=== PATIENT | female | born 1940 | race Caucasian/White ===

== ENCOUNTER 2019-09-04 19:52 | Observation (INO) | payer MEDICARE ==
[~2019-09-04] VITALS: Ht 165.1 cm; Wt 93.0 kg
--- OUTSIDE RECORDS SUMMARY | 2019-09-04 19:56 | XMS REPORT ---
Author Author [facility] Address Unknown Phone Unavailable Care Team Providers Care Family Preservation Caseworker Name Role Phone Unavailable Unavailable Payers Payer Name Policy Type Policy Number Effective Date Expiration Date Problems This patient has no known problems. Allergies, Adverse Reactions, Alerts Allergy Name Allergy Type Status Severity Reaction(s) Onset Date Inactive Date Treating Clinician Comments cefuroxime axetil DA Active U 2018-11-14 00:00:00 codeine DA Active U 2018-11-14 00:00:00 cefaclor DA Active U 2018-11-14 00:00:00 cefuroxime axetil DA Active U 2013-08-10 00:00:00 codeine DA Active U 2013-08-10 00:00:00 cefaclor DA Active U 2013-08-10 00:00:00 Medications This patient has no known medications. Results Test Description Test Time Test Comments Text Results Atomic Results Result Comments BASIC METABOLIC PANEL 2018-11-14 13:32:00 SODIUM (test code=NA) 143 mmol/L 136-145 POTASSIUM (test code=K) 4.8 mmol/L 3.5-5.1 CHLORIDE (test code=CL) 108.0 mmol/L 98-107 CARBON DIOXIDE (test code=CO2) 27.0 mmol/L 21-32 ANION GAP (test code=GAP) 12.8 10-20 GLUCOSE (test code=GLU) 99 mg/dL 74-106 BLOOD UREA NITROGEN (test code=BUN) 10 mg/dL 7-18 GLOMERULAR FILTRATION RATE (test code=GFR) > 60 mL/min >=60 Estimated GFR by using Modified MDRD formula.Chronic kidney disease is defined as either kidney damageor GFR <60 mL/min/1.73 m2 for >3 months. CREATININE (test code=CREAT) 0.70 mg/dL 0.55-1.02 Note change in reference range due to change in reagent. BUN/CREATININE RATIO (test code=BUN/CREA) 13.6 10-20 CALCIUM (test code=CA) 9.0 mg/dL 8.5-10.1 HEPATIC FUNCTION [id number] 13:32:00* Test Item Value Reference Range Comments TOTAL PROTEIN (test code=PROT) 7.6 gram/dL 6.4-8.2 ALBUMIN (test code=ALB) 3.3 g/dL 3.4-5.0 GLOBULIN (test code=GLOB) 4.3 gram/dL 2.7-4.2 ALBUMIN/GLOBULIN RATIO (test code=A/G) 0.8 0.75-1.50 BILIRUBIN TOTAL (test code=BILT) 0.30 mg/dL 0.0-1.0 BILIRUBIN DIRECT (test code=BILD) 0.09 mg/dL 0.0-0.20 SGOT/AST (test code=AST) 20 IUnit/L 15-37 SGPT/ALT (test code=ALT) 24 IUnit/L 12-78 ALKALINE PHOSPHATASE TOTAL (test code=ALKP) 87 IUnit/L 45-117 Note change in reference range due to change in reagent. [id number] 13:32:00* Test Item Value Reference Range Comments LIPASE (test code=LIP) 127 U/L 73.0-393.0 [id number] 13:32:00* Test Item Value Reference Range Comments TROPONIN-I (test code=TROPI) <0.015 ng/mL 0-0.045 PROTHROMBIN [id number] 13:16:00* Test Item Value Reference Range Comments PROTHROMBIN TIME PATIENT (test code=PTP) 11.0 seconds 9.0-14.0 INTERNATIONAL NORMAL RATIO (test code=INR) 0.9 0.8-1.2 The therapeutic range for oral anticoagulant therapy formost indications is an international normalized ratio (INR)of between 2.0 and 3.0. The recommended therapeutic INRrange for various clinical situations is listed below: Clinical Situation INR range Pulmonary e mbolism treatment (2.0-3.0)Venous thrombosis treatmentVenous thrombosis prophylaxis (high risk surgery)Prevention of systemic embolism from: Acute myocardial infarction Valvular heart disease Atrial fibrillation Mechanical prosthetic heart valves (2.5-3.5) IS PATIENT ON ANTICOAGULANTS? NCBC W/O [id number] 13:10:00* Test Item Value Reference Range Comments WHITE BLOOD CELL (test code=WBC) 9.0 K/mm3 4.5-12.5 RED BLOOD CELL (test code=RBC) 4.60 mill/mm3 3.7-5.2 HEMOGLOBIN (test code=HGB) 8.3 gram/dL 11.5-15.5 HEMATOCRIT (test code=HCT) 31.5 % 36.0-46.0 MEAN CELL VOLUME (test code=MCV) 68.5 fL 80-98 MEAN CELL HGB (test code=MCH) 18.0 picogram 27.0-33.0 MEAN CELL HGB CONCETRATION (test code=MCHC) 26.3 gram/dL 33.0-36.0 RED CELL DISTRIBUTION WIDTH (test code=RDW) 22.1 % 11.6-16.2 PLATELET COUNT (test code=PLT) 396 K/mm3 150-450 MEAN PLATELET VOLUME (test code=MPV) 9.6 fL 6.7-11.0
[2019-09-04 20:46] LABS: BASOPHILS # (AUTO) 0.1 (0.0-0.1); BASOPHILS % 0.7 % (0.0-1.0); EOSINOPHILS # (AUTO) 0.1 (0.0-0.4); HEMATOCRIT 44.2 % (34.2-44.1); HEMOGLOBIN 14.7 g/dL (12.0-16.0); LYMPHOCYTES # (AUTO) 5.5 (1.0-3.2); LYMPHOCYTES % 41.1 % (18.0-39.1); MEAN CORPUSCULAR HEMOGLOBIN 29.3 pg (28-32); MEAN CORPUSCULAR HGB CONC 33.3 g/dL (31-35); MEAN CORPUSCULAR VOLUME 88.2 fL (81-99); MONOCYTES # (AUTO) 1.2 (0.2-0.8); MONOCYTES % 8.6 % (4.4-11.3); NEUTROPHILS # (AUTO) 6.5 (2.1-6.9); NEUTROPHILS % 48.3 % (38.7-80.0); PLATELET COUNT 377 x10e3/uL (140-360); RED BLOOD COUNT 5.01 x10e6/uL (3.6-5.1); RED CELL DISTRIBUTION WIDTH 16.1 % (11.7-14.4)
[2019-09-04 20:54] LABS: INR 0.85; PROTHROMBIN TIME 12.1 seconds (11.9-14.5)
[2019-09-04 20:55] LABS: PARTIAL THROMBOPLASTIN TIME 25.1 seconds (23.8-35.5)
[2019-09-04 21:04] LABS: ALANINE AMINOTRANSFERASE 22 IU/L (0-55); ALBUMIN/GLOBULIN RATIO 1.1 (0.8-2.0); ALKALINE PHOSPHATASE 79 IU/L (40-150); ANION GAP 20.5 mmol/L (8-16); BLOOD UREA NITROGEN 9 mg/dL (7-26); BUN/CREATININE RATIO 11 (6-25); CALCIUM 10.5 mg/dL (8.4-10.2); CARBON DIOXIDE 20 mmol/L (22-29); CHLORIDE 100 mmol/L (98-107); CREATINE KINASE 83 IU/L (29-168); EST GLOMERULAR FILTRATION RATE > 60 ML/MIN (60-); GLUCOSE 131 mg/dL (74-118); POTASSIUM 3.5 mmol/L (3.5-5.1); SODIUM 137 mmol/L (136-145)
--- NOTE | 2019-09-04 21:10 | Diagnostic Imaging Report ---
EXAMINATION: CHEST SINGLE (PORTABLE) INDICATION: ^ERMD ORDER ^[id number] ^2044 ^Y COMPARISON: None FINDINGS: AP view TUBES and LINES: None. LUNGS: Lungs are well inflated. Mild central vascular congestion. There is no evidence of pneumonia or pulmonary edema. PLEURA: No pleural effusion or pneumothorax. HEART AND MEDIASTINUM: The cardiac silhouette is borderline in size. BONES AND SOFT TISSUES: No acute osseous lesion. Soft tissues are unremarkable. UPPER ABDOMEN: No free air under the diaphragm. IMPRESSION: Borderline size of cardiac silhouette and mild central vascular congestion. Otherwise, unremarkable. Signed by: Dr. River Chen MD on 09/04/2019 9:07 PM
[2019-09-04 21:18] LABS: BAND NEUTROPHILS % (MANUAL) 1 %; EOSINOPHILS % (MANUAL) 1 % (0-7); LYMPHOCYTES % (MANUAL) 39 % (19-48); MONOCYTES % (MANUAL) 3 % (3.4-9.0); NEUTROPHILS % (MANUAL) 45 % (40-74); PLATELET ESTIMATE ADEQUATE; PLATELET MORPHOLOGY COMMENT NORMAL; RBC MORPHOLOGY COMMENT NORMAL
[2019-09-04] MEDS ORDERED: ONDANSETRON HCL INJ 2MG/ML 2ML 2 MG/ML VIAL IV STA (21:27)
[2019-09-05] VITALS (9 sets, daily range): BP systolic 133–166; BP diastolic 63–72
[2019-09-05 00:13] LABS: BILIRUBIN,URINE NEGATIVE (NEGATIVE); CLARITY,URINE CLOUDY (CLEAR); COLOR,URINE YELLOW (YELLOW); KETONES,URINE 3+ (NEGATIVE); LEUKOCYTE ESTERASE ,URINE NEGATIVE (NEGATIVE); NITRITE,URINE NEGATIVE (NEGATIVE); PROTEIN,URINE DIPSTICK TRACE (NEGATIVE); URINE UROBILINOGEN 0.2 mg/dL (0.2 - 1)
[2019-09-05 01:46] LABS: BACTERIA,URINE MODERATE /HPF; EPITHELIAL CELLS,URINE MANY /LPF; RENAL EPITHELIAL CELLS,URINE MANY
--- NOTE | 2019-09-05 03:30 | NUR ---
Pt admitted to room 209 from home, via stretcher, able to transfer to bed with min assist. Pt alert and oriented to self, hospital, time, and diagnosis: Chest pain, Pt denies at this time. Pt c/o left knee pain and swelling, no swelling noted. Last BM 09/04, continent. Family at bedside. Oriented to room. Bed low and locked. Bed alarm on. Call light within reach.
[2019-09-05] MEDS ORDERED: HEARTBURN TREAT15 MG PO (04:15)
[2019-09-05 06:24] LABS: CREATINE KINASE MB 1.2 ng/mL (0-5.0)
[2019-09-05] MEDS: ACETAMINOPHEN 325 MG TAB PO PRN (13:35)
--- NOTE | 2019-09-05 13:58 | NUR ---
REQUEST RECEIVED FOR MPOA INFO. MET W THE PT AT THE BEDSIDE. STATES SHE WANTED HER SON TO HAVE PAPERWORK TO BE HER POA. ADVANCED DIRECTIVE BOOKLET GIVEN. EXPLAINED ADV DIRECTIVE, DPOA, AND MPOA. PT VERBALIZED UNDERSTANDING. SHE WILL SHARE THE INFO W HER SON.
[2019-09-05 14:41] LABS: CREATINE KINASE 109 IU/L (29-168)
[2019-09-05] MEDS ORDERED: HYDRALAZINE HCL 20 MG/ML VIAL IV PRN (17:15)
[2019-09-05] MEDS ORDERED: POTASSIUM CHLORIDE 20 MEQ TAB CR PO ONE (18:00)
--- NOTE | 2019-09-05 19:20 | NUR ---
Bedside rounds completed with morning nurse. Pt alert and orient to name, lying in bed HOB 45 degrees. Denies pain at this time. Call light within reach. Will continue to monitor.
[2019-09-06] VITALS: BP 152/67
[2019-09-06 04:00] VITALS: BP 187/74
[2019-09-06 05:25] LABS: BASOPHILS # (AUTO) 0.1 (0.0-0.1); BASOPHILS % 0.8 % (0.0-1.0); EOSINOPHILS # (AUTO) 0.2 (0.0-0.4); EOSINOPHILS % 1.9 % (0.0-6.0); HEMATOCRIT 42.7 % (34.2-44.1); HEMOGLOBIN 13.9 g/dL (12.0-16.0); LYMPHOCYTES # (AUTO) 4.6 (1.0-3.2); LYMPHOCYTES % 45.2 % (18.0-39.1); MEAN CORPUSCULAR HEMOGLOBIN 29.7 pg (28-32); MEAN CORPUSCULAR HGB CONC 32.6 g/dL (31-35); MEAN CORPUSCULAR VOLUME 91.2 fL (81-99); MONOCYTES # (AUTO) 0.8 (0.2-0.8); MONOCYTES % 7.8 % (4.4-11.3); NEUTROPHILS # (AUTO) 4.5 (2.1-6.9); NEUTROPHILS % 43.9 % (38.7-80.0); PLATELET COUNT 305 x10e3/uL (140-360); RED BLOOD COUNT 4.68 x10e6/uL (3.6-5.1); RED CELL DISTRIBUTION WIDTH 16.8 % (11.7-14.4)
--- NOTE | 2019-09-06 05:40 | NUR ---
BP elevated 187/74, received prn Hydralazine. Denies RUDD or dizziness.
[2019-09-06 05:45] LABS: ANION GAP 11.9 mmol/L (8-16); BLOOD UREA NITROGEN 10 mg/dL (7-26); BUN/CREATININE RATIO 13 (6-25); CALCIUM 9.7 mg/dL (8.4-10.2); CARBON DIOXIDE 25 mmol/L (22-29); CHLORIDE 103 mmol/L (98-107); CREATININE, SERUM 0.75 mg/dL (0.57-1.11); EST GLOMERULAR FILTRATION RATE > 60 ML/MIN (60-); GLUCOSE 101 mg/dL (74-118); MAGNESIUM 2.2 MG/DL (1.3-2.1); PHOSPHORUS 3.6 MG/DL (2.3-4.7); POTASSIUM 3.9 mmol/L (3.5-5.1); SODIUM 136 mmol/L (136-145)
--- NOTE | 2019-09-06 06:50 | NUR ---
Bedside rounds completed with morning nurse. Pt alert and orient. No distress noted.
--- NOTE | 2019-09-06 07:00 | NUR ---
BEDSIDE SHIFT RECEIVED FROM THE SERVICE CENTER MANAGER RN. EDUCATED PT ABOUT FALL PRECAUTIONS. CALL LIGHT WITH IN EASY REACH. INSTRUCTED PT TO USE CALL LIGHT FOR ALL THE NEEDS. PT VERBALIZED UNDERSTANDING. BED IS LOW AND LOCKED. SIDE RAILS X2. BED ALARM IS ON. PT DENIES NEEDS AT THIS TIME.
[2019-09-06] MEDS: ACETAMINOPHEN 325 MG TAB PO PRN (08:03)
[2019-09-06] MEDS ORDERED: SUDAFED 12 HOU120 MG (08:07)
[2019-09-06 08:56] VITALS: BP 131/62
[2019-09-06] MEDS ORDERED: FAMOTIDINE 20 MG/2 ML VIAL IV SCH (09:00)
[2019-09-06 09:16] VITALS: BP 131/62
[2019-09-06 12:04] VITALS: BP 137/64
[2019-09-06] MEDS ORDERED: METOPROLOL TART25 MG PO (12:04)
--- NOTE | 2019-09-06 13:00 | NUR ---
INFORMED PT ABOUT DISCHARGE. PT SON WILL COME AND WET PRIMER POWDER BLENDER THE PT LATER
--- NOTE | 2019-09-06 14:10 | NUR ---
PT C/O NAUSEA. 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 NEW ORDER RECEIVED.
[2019-09-06] MEDS ORDERED: ONDANSETRON HCL INJ 2MG/ML 2ML 2 MG/ML VIAL IV PRN (14:15)
--- NOTE | 2019-09-06 16:45 | NUR ---
PT DISCHARGED HOME SAFELY WITH SON. PT ESCORTED VIA WHEEL CHAIR TO THE PRIVATE AUTO AT THE FRONT ENTRANCE. TELE AND IV REMOVED. TIP INTACT. DRESSING APPLIED. RX GIVEN. PT DENIED FURTHER NEEDS.
--- NOTE | 2019-09-07 10:47 | Discharge Summary ---
PERTINENT HISTORY AND PHYSICAL FINDINGS AND CHIEF COMPLAINT: Dizziness with left leg pain and swelling. Working diagnosis in the ER was chest pain. The patient states that she no longer has a PCP is Dr. Chong is about to retire. She is a 78-year-old female, who was admitted via the emergency department with complaints of shortness of breath, dizziness, nausea, vomiting at home prior to arrival. Her left leg pain and swelling started about a month ago. PAST MEDICAL HISTORY: Denies any history of DVTs or clots. She had a complete vaginal prolapse in 1995, anemia, and on iron at home. She has never had a colonoscopy. PAST SURGICAL HISTORY: Appendectomy in 1971. She had a hysterectomy, tonsillectomy, repair of vaginal prolapse, and oophorectomy. FAMILY HISTORY: Great grandfather had colon cancer. Grandmother had stomach cancer and diabetes. Mother had Hodgkin disease. Grandfather had myocardial infarction. Maternal aunt had colon cancer. Paternal grandfather had [place]. Father had ventricular rupture. Brother had a heart transplant, cardiomyopathy and congestive heart failure. SOCIAL HISTORY: She denies using tobacco or illicit drugs. She does drink alcohol socially. ALLERGIES: INCLUDE IODINE AND CODEINE. ADMITTING DIAGNOSES: 1. Left leg swelling and pain. 2. Leukocytosis with WBC 13.4. 3. Nausea, vomiting. 4. Acute hypercalcemia with calcium 10.5. 5. Mild hypokalemia with potassium 3.5. DISCHARGE DIAGNOSES: 1. Left leg swelling and pain. 2. Leukocytosis with WBC 13.4. 3. Nausea, vomiting. 4. Acute hypercalcemia with calcium 10.5. 5. Mild hypokalemia with potassium 3.5. LABORATORY DATA: Her WBCs have improved to 10.2, calcium has improved to 9.7, vitamin D level, and parathyroid hormone intact, level still pending. Potassium level 3.9. Urinalysis showed cloudy urine, trace protein, 3+ ketones, WBC 11 to 20, moderate bacteria. However, culture and sensitivity was not sent. The patient denied dysuria. She was afebrile. ECG showed sinus rhythm with PACs and PVCs. Chest x-ray showed mild central vascular congestion. Cardiac enzymes were within normal limits. Left lower extremity venous Doppler ultrasound was negative for DVT. B type nitrate peptide 13.7. Left leg swelling was mostly localized around the left knee. I suspect the patient has joint issues, which will need workup on an outpatient basis. She is advised to see her PCP, perhaps the younger of Dr. Chong's or she can follow up with Dr. Orellana as a PCP or she can choose another PCP. Case was discussed with Dr. Orellana. Nausea and vomiting had improved and she had some dizziness and her blood pressure elevated 156/60 yesterday, 187/74 today, subsequent 131/62 after hydralazine and having headache 10 this morning. We will prescribe her metoprolol tartrate 25 mg p.o. daily to start for the hypertension. We will continue cardiac diet. Activity level as tolerated. She does ambulate with a walker. Dictated by Vernon Harvey NP MD LIZY MezaP/SUSAN /[id number]
== END 2019-09-06 16:45 | disposition home or self-care (01) ==
LOC: ER 19:52 → ERHOLD 23:38 → MED/SURG2 09-05 03:29
PROVIDERS: ADMIT Internal Medicine; ATTEND Internal Medicine
DX: M79.605 Pain in left leg (principal); E83.52 Hypercalcemia; E87.6 Hypokalemia; R11.2 Nausea with vomiting, unspecified
CPT/HCPCS: 36415 ×3; 71045; 80048; 80053; 81001; 82306; 82550 ×2; 82553 ×2; 83735; 83880; 83970; 84100; 84484 ×2; 85025 ×2; 85610; 85730; 93005; 93971; 99284; G0378 ×3; J0360; J2405 ×2